=== PATIENT | male | born 1995 | race Caucasian/White ===

== ENCOUNTER → 2019-11-07 | Outpatient (CLI) | payer BC, OTHER ==
--- NOTE | 2019-11-07 12:28 | RAD ---
EXAM: Abdomen sonogram. HISTORY: Palpable lumps within the posterior body wall. TECHNIQUE: Sonographic imaging of the posterior body wall the sites of palpable concern was performed. COMPARISON: None. FINDINGS: There is no suspicious sonographic finding at sites of reported palpable concern within the soft tissues along the right and left aspect of the lumbar spine. IMPRESSION: No suspicious sonographic finding. Continued clinical follow-up of palpable abnormalities is recommended. Cross sectional imaging can be performed if there is concern for a sonographically occult lesion. Electronically signed by: Florence Olguin MD (11/07/2019 12:26 PM) [place] [id number]
== END | disposition home or self-care (01) ==
LOC: US 09:48
PROVIDERS: ATTEND Family Medicine
DX: R22.2 Localized swelling, mass and lump, trunk (principal)
CPT/HCPCS: 76882